=== PATIENT | female | born 1990 | race Caucasian/White ===

== ENCOUNTER 2019-10-22 14:13 | Observation (INO) | payer OTHER, SELFPAY ==
[2019-10-22] VITALS (8 sets, daily range): BP systolic 95–114; BP diastolic 63–77; PULSE 83–106; RESP 18; TEMP 36.8–36.9; O2SAT 99; BMI 25.4
--- NOTE | 2019-10-22 15:01 | OBADM ---
This patient, Amber Santo, admitted to the OB room OB Post 115 for observation. Patient/family oriented to hospital policies and general routines including ID bracelet, bed and alarms, visiting hours, pain management, procedures, bathroom and other care routines, personal items, smoking policy, room service/diet, and visiting hours. Patient/Family are encouraged to report perceived risks to care and to ask questions if they do not understand what they are told or what they should do.
[2019-10-22 15:06] LABS: Add Urine Microscopic? YES; Appearance Urine Turbid (Clear); Bacteria Urine 3+ /hpf; Bilirubin Urine Negative (Negative); Blood Urine 1+ (Negative); Color Urine Yellow (Yellow); Glucose Urine UA Negative (Negative); Ketones Urine Negative (Negative); Leukocyte Esterase Ur 3+ LEU/UL (Negative); Mucus Urine Few /lpf; Nitrate Urine Positive (Negative); Protein Urine 2+ mg/dL (Negative); RBC Urine >75 /hpf (0-2); Specific Grav Ur 1.016 (1.001-1.035); Squamous Epithelial Cell Urine Occasional /hpf (Few); Urobilinogen Urine Negative mg/dL (<2.0); WBC Urine >75 /hpf
--- NOTE | 2019-10-30 09:31 | PM.OBTRLD ---
OB - Triage/Final Diagnosis Evaluation Laboratory results: Laboratory Tests 10/22/19 14:25 Urine Color Yellow Urine Appearance Turbid H Urine pH 6.0 Ur Specific [place] 1.016 Urine Protein 2+ H Urine Glucose (UA) Negative Urine Ketones Negative Ur Blood (Man) 1+ H Urine Nitrate Positive H Urine Bilirubin Negative Urine Urobilinogen Negative Leukocyte Esterase Rfl 3+ H Urine RBC >75 H Urine WBC >75 H Ur Squamous Epith Cells Occasional Urine Bacteria 3+ H Urine Mucus Few H Final Diagnosis (1) UTI (urinary tract infection): Code(s): N39.0 - Urinary tract infection, site not specified Status: Acute
== END 2019-10-22 16:00 | disposition home or self-care (01) ==
PROVIDERS: Admitting Provider Obstetrics & Gynecology Gynecology; PCP Obstetrics & Gynecology; Visit Provider Obstetrics & Gynecology Gynecology
DX: O23.42 Unspecified infection of urinary tract in pregnancy, second trimester (principal); Z3A.22 22 weeks gestation of pregnancy
CPT/HCPCS: 81001; 87077; 87086; 87088; 87186; 99211; G0378; G0379; G0463

== ENCOUNTER 2019-12-22 14:23 | Outpatient (RCR) | payer OTHER, SELFPAY ==
[2019-12-23] MEDS: RHO(D) IMMUNE GLOBULIN 300 MCG SYRINGE IM (10:37)
== END 2020-03-21 23:59 | disposition home or self-care (01) ==
LOC: ANHLAB 14:23
PROVIDERS: PCP Obstetrics & Gynecology; Visit Provider Physician Assistant
DX: Z01.83 Encounter for blood typing (principal); Z29.13 Encounter for prophylactic Rho(D) immune globulin; O36.0990 Maternal care for other rhesus isoimmunization, unspecified trimester, not applicable or unspecified; Z3A.00 Weeks of gestation of pregnancy not specified
CPT/HCPCS: 36415; 85461; 90384; 96372; J2790

== ENCOUNTER 2020-02-08 16:08 | Observation (INO) | payer OTHER, SELFPAY ==
--- NOTE | 2020-02-08 16:08 | OBADM ---
This patient, Amber Santo, admitted to the OB room Labor/Delivery/Recovery 120 for observation. Patient/family oriented to hospital policies and general routines including ID bracelet, bed and alarms, visiting hours, pain management, procedures, bathroom and other care routines, personal items, smoking policy, room service/diet, and visiting hours. Patient/Family are encouraged to report perceived risks to care and to ask questions if they do not understand what they are told or what they should do.
--- NOTE | 2020-02-11 10:38 | PM.OBTRLD ---
OB - Triage/Final Diagnosis Visit Information Reason for evaluation: threatened labor
== END 2020-02-08 17:45 | disposition home or self-care (01) ==
PROVIDERS: Admitting Provider Obstetrics & Gynecology; Visit Provider Obstetrics & Gynecology
DX: O47.1 False labor at or after 37 completed weeks of gestation (principal); Z3A.38 38 weeks gestation of pregnancy
CPT/HCPCS: G0378; G0379

== ENCOUNTER 2020-02-11 14:28 | Outpatient (CLI) | payer OTHER, SELFPAY ==
[2020-02-11 14:53] LABS: Hematocrit 28.4 % (37.0-47.0); Hemoglobin 9.1 g/dL (12.0-15.0); Mean Corpuscular Hemoglobin 28.4 pg (26-34); Mean Corpuscular Volume 88.8 fl (80-100); Mean Platelet Volume 10.4 fl (7.4-10.4); Platelet Count Result 458 k/mm3 (150-375); Red Cell Distribution Width 15.4 % (11.5-14.5); White Blood Count 13.6 K/mm3 (4.5-10.0)
[2020-02-11 16:14] LABS: HIV 1/2 Ab P24 Ag Result Negative (Negative)
[2020-02-12 07:16] LABS: Rapid Plasma Reagin Non-Reactive (NonReactive)
== END 2020-02-11 14:29 | disposition home or self-care (01) ==
LOC: ANHLAB 14:30
PROVIDERS: PCP Obstetrics & Gynecology; Visit Provider Obstetrics & Gynecology
DX: O82 Encounter for cesarean delivery without indication (principal); Z3A.00 Weeks of gestation of pregnancy not specified
CPT/HCPCS: 36415; 85027; 86592; 86703; 86850; 86880; 86900; 86901; 86902; G0432

== ENCOUNTER 2020-02-12 11:15 | Inpatient (IN) | payer OTHER, SELFPAY ==
--- NOTE | 2020-01-28 14:52 | PC.NURSE ---
VERIFIED WITH OR SCHEDULE AND PATIENT--C/S ON 02/19/20 AT 1330 PATIENT GIVEN REQUISITION FOR PRE-OP LAB DRAW ON 02/18/20
[2020-02-12] VITALS (42 sets, daily range): BP systolic 84–118; BP diastolic 28–90; PULSE 45–133; RESP 14–18; TEMP 36.1–36.6; O2SAT 93–100; BMI 28.5
[2020-02-12] MEDS: LACTATED RINGERS 1,000 ML 125 ML IV CONT (12:06)
--- NOTE | 2020-02-12 12:10 | LDADM ---
This patient, Amber Santo, was admitted to Labor/Delivery/Recovery 118 on 02/12/20 at 11:15. Plans for labor, pain management and were discussed with patient. Patient/family oriented to hospital policies and general routines including ID bracelet, bed and alarms, visiting hours, pain management, procedures, bathroom and other care routines, personal items, smoking policy, room service/diet and guest tray routines, infant security routines, and visiting hours. Patient/Family are encouraged to report perceived risks to care and to ask questions if they do not understand what they are told or what they should do. See OBIX for further documentation.
--- NOTE | 2020-02-12 13:11 | WPDANESEPPF ---
Anes - Initial Pre Proc Eval Procedure: Operation Date: 02/12/20 13:30 Proposed Procedures p Repeat Low Transverse Section - Jax Peters MD Date/Time: 02/12/20 13:11 Surgeon: Jax Peters MD Pre Op Diagnosis: C Section Patient Data Age: 29 Gender: F Height: 5 ft 3 in Weight: 73.2 kg Last Vital Signs Pulse 126 H 02/12/20 11:49 BP 118/86 02/12/20 11:49 Allergies Allergy/AdvReac Type Severity Reaction Status Date / Time No Known Allergies Allergy Verified 01/28/20 14:30 Home Medications Medication Instructions Recorded Confirmed Type Gummy 2 tablet PO DAILY 10/22/19 10/22/19 History Patient hx anesthesia problems: none Family hx anesthesia problems: none PMFSH Family History Family History Father Diabetes mellitus Grandparent Diabetes mellitus Alzheimer disease Mother Paget disease of bone Social History Social History Smoking packs per day: 0.5 Smoking cigarettes per day: 10.0 Smoking status: Current every day smoker Tobacco type: cigarettes Second hand tobacco smoke exposure: Yes Substance use: never Gender identity (if verbalized by the patient): Female Spiritual care concerns: No Anes - Eval Final PreProcedure Day of Procedure 02/12/20 13:11 Patient weight: overweight Heart: tachycardia Lungs: clear to auscultation Airway: Mallampati scale class II Neurological: alert and oriented Last oral intake: >/= 8 hours ASA classification: II Emergent: no Anesthetic plan: proceed Anesthesia type and monitoring: regional spinal and standard monitoring Informed Consent: The patient's anesthetic plan and its attendant risks and benefits were discussed with the patient/family/POA. Questions were solicited and answers provided to the satisfaction of the patient/family/POA.
--- NOTE | 2020-02-12 13:18 | PM.IMHP ---
H&P: HPI History of Present Illness Date/Time: 02/12/20 13:18 Chief complaint: C Section Narrative: Amber Santo is a 29 yo F, , 39wks gestation with hx of UTI, anemia of , BV,chlamydia, deliveries by , MTFR and recurrent miscarriage presents for Repeat Low Transverse c section under spinal Review of Systems Review of Systems: All systems reviewed & are unremarkable except as noted in HPI and below Constitutional: Constitutional: Reports no additional constitutional complaints Eyes: Eyes: Reports no additional eye complaints ENT: Reports system reviewed and no additional complaints, except as documented Cardiovascular: Cardiovascular: Reports no additional cardiovascular complaints Respiratory: Respiratory: Reports no additional respiratory complaints Gastrointestinal: Gastrointestinal: Reports no additional gastrointestinal complaints Genitourinary: Genitourinary: Reports no additional female genitourinary complaints Musculoskeletal: Musculoskeletal: Reports no additional musculoskeletal complaints Integumentary/Breasts: Skin/Breast: Reports system reviewed and no additional complaints, except as docu Neurologic: Reports system reviewed and no additional complaints, except as documented Psychiatric: Psychiatric: Reports no additional psychiatric complaints Endocrine: Endocrine: Reports no additional endocrine complaints Hematologic/Lymphatic: Hematologic/Lymphatic: Reports no additional hematologic/lymphatic complaints Allergic/Immunologic: Allergic/Immunologic: Reports no additional allergic/immunologic complaints PMFSH Past Medical History Medical History 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 F, 4lbs 11oz, Primary Delivery by section 12-17-2008, 40 wks 1. M, 5lbs 8oz, Repeat Family History Family History Father Diabetes mellitus Grandparent Diabetes mellitus Alzheimer disease Mother Paget disease of bone Social History Social History (Updated 02/12/20 @ 13:37 by Jax Peters MD) Smoking packs per day: 0.5 Smoking cigarettes per day: 10.0 Years smoked: 10 Smoking pack-years: 5.00 Smoking status: Current every day smoker Tobacco type: cigarettes Second hand tobacco smoke exposure: Yes Alcohol intake: former Substance use: never Substance use type: does not use Living arrangements: with family Occupation/Education: unemployed Gender identity (if verbalized by the patient): Female Sexual Orientation (if Verbalized by the Patient): Straight or Heterosexual Spiritual care concerns: No Agree to blood products: Yes Meds Home Medications and Allergies Home Medications Medication Instructions Recorded Confirmed Type Gummy 2 tablet PO DAILY 10/22/19 10/22/19 History Allergies Allergy/AdvReac Type Severity Reaction Status Date / Time No Known Allergies Allergy Verified 01/28/20 14:30 Vital Signs Vital Signs - 24 hr 02/12/20 11:49 Pulse Rate 126 H Blood Pressure 118/86 Exam Const: General: no acute distress HENMT: Ears: TM's normal bilaterally General nose exam: Normal nares present Mouth: Yes moist mucous membranes Eyes: General: appearance normal, both eyes and all related structures Neck: Neck: supple and no JVD Chest: Chest palpation & inspection: normal inspection of the chest Breast/axilla inspection: normal inspection of the breasts Breast/axilla palpation: normal palpation of the breasts Resp: Auscultation: clear to auscultation bilaterally Cardio: Rate: regular rat
[2020-02-12] MEDS: LACTATED RINGERS 250 ML 999 ML IVPB (13:26)
--- NOTE | 2020-02-12 13:40 | WPDHPUPDATE1 ---
History and Physical Update Update Date/Time: 02/12/20 13:40 History and Physical has been reviewed, including an updated exam of the patient. There are NO changes in the patient's condition. Risks, benefits, and alternatives have been discussed and questions answered. Patient agrees to proceed with procedure. 29yo F with hx of UTI, anemia of , BV, chlamyida, deliveries by , MTHFR, and recurrent miscarriages presents for Repeat c section under spinal at 39 weeks
--- NOTE | 2020-02-12 13:42 | WPDOBADMIT ---
Obstetrics - Admit Note Admission Note: record reviewed. No pertinent additions to the history and/or any subsequent changes in the physical findings that are not consistent with the expected course of the were found. Additions to the history and/or subsequent changes in the physical findings follow. None. 29yo F @ 39weeks with hx of UTI, anemia of , BV, chlamyida, deliveries by , MTHFR, and recurrent miscarriages presents for Repeat Low Transverse c section
[2020-02-12] MEDS: OXYTOCIN 10 UNITS/ML VIAL IM (14:13)
--- NOTE | 2020-02-12 14:49 | PM.OBPRVD ---
OB - Delivery Note Procedure Delivery date: 02/12/20 Procedure: Procedures Operation Date: 02/12/20 13:30 Repeat Low transverse c section with delivery of viable female and placenta and myomectomy Intrapartal events: None Induction method: none Delivery monitor: external FHT and external uterine Route of delivery: (REPEAT LTCS) Specimen: Yes Estimated blood loss (mL): 435 Anesthesia type: Spinal Disposition: floor Complications: none Baby Date of : 02/12/20 Time of : 14:12 Weeks of gestation at delivery: 39 Infant gender: Female Weight (pounds): 6 Weight (ounces): 2 presentation: vertex position: Left Occiput Transverse Placenta delivery description: Manual Removal and Normal Configuration cord vessel description: 3 Vessels score one minute: 8 score five minutes: 9
--- NOTE | 2020-02-12 14:52 | PM.OBDSVD ---
DS: Admitting Diagnosis Admitting Diagnosis Admitting Diagnosis: C Section term DS: Discharge Diagnosis Discharge Diagnosis (1) Term delivered: Code(s): O80 - Encounter for full-term uncomplicated delivery Status: Acute (2) Delivery by section: Status: Acute (3) Recurrent loss: Code(s): N96 - Recurrent loss Status: Acute (4) Constipation during : Code(s): O99.619 - Diseases of the digestive system complicating , unspecified trimester; K59.00 - Constipation, unspecified Status: Acute (5) STD (sexually transmitted disease): Code(s): A64 - Unspecified sexually transmitted disease Status: Acute (6) UTI (urinary tract infection): Code(s): N39.0 - Urinary tract infection, site not specified Status: Acute (7) History of chlamydia infection: Code(s): Z86.19 - Personal history of other infectious and parasitic diseases Status: Acute (8) Rh negative status during : Code(s): O26.899 - Other specified related conditions, unspecified trimester; Z67.91 - Unspecified blood type, Rh negative Status: Acute (9) Delivery by section: Status: Acute (10) Heterozygous MTHFR mutation [id number]: Code(s): E72.12 - Methylenetetrahydrofolate reductase deficiency Status: Acute OB - DS: Summary Hospital Course Time spent discussing smoking cessation with patient: 3 to 10 minutes OB Procedures : Ultrasound OB Procedures Intrapartum: (REPEAT LTCS) OB Procedures: : RHo (D) lg Peripartum Data Infant Delivery Method: Section Procedures: Procedures Operation Date: 02/12/20 13:30 <No data on this case meets the specified criteria> complications: none 1: Gender: Female Disposition of : home Status at Discharge Functional status at discharge: independent ambulation Overall status at discharge: patient is back to baseline Time Spent with Patient Time attestation: Total time spent providing and/or coordinating discharge services: Time spent: Less than 30 minutes Exam Const: General: comfortable, no acute distress, alert and awake Orientation/consciousness: patient oriented x3 Limitations: no limitations Chest: Breast/axilla inspection: normal inspection of the breasts Breast/axilla palpation: normal palpation of the breasts Resp: Effort & Inspection: normal respiratory effort Auscultation: clear to auscultation bilaterally Cardio: Rate: regular rate GI: Inspection: normal to inspection and incision (DDI) GI Palp: Yes Soft to palpation Percussion: Yes normal to percussion Auscultation: normal bowel sounds Rectal Exam: deferred : General: Yes bladder normal to inspection and Yes no CVA tenderness Psych: Appearance: grossly normal Mental Status: mental status grossly normal Affect: normal affect Attitude: cooperative Thought content: Yes Normal thought content present Judgement: Good judgement present (Psych) DS: Data Data Completed and Pending Pending studies at discharge: Pending at discharge 02/12/20 14:31 Surgical [PTH] Routine Discharge Plan Discharge Attending physician on discharge: Jax Peters Discharging Clinician: Jax Peters Anticipated Discharge Date/Time: 02/15/20 14:56 Patient Disposition: Home, Self-Care Activity: may shower, no straining and may drive after 2 weeks Diet: as tolerated and regular Wound Care Instructions: follow printed instructions Discharge Instructions: routine Patient Instructions: Antibiotic Form Stand Alone Forms: General Discharge Information Follow-up/Referrals: Jax Peters MD [Physician] - Discharge Medications: No Action Gummy 400 mcg-35 mg -25 mg-5 mg Tablet,Chewable 2 tablet PO DAILY RF: 0 Date of admission: 02/12/20 11:15
[2020-02-12] MEDS: MORPHINE SULFATE 2 MG/ML INJ 3 MG IV PUSH (15:09)
[2020-02-12] MEDS: OXYTOCIN 30 UNITS/NS 500 ML 30 UNITS/500 ML BAG 125 UNITS IV CONT (15:25)
--- NOTE | 2020-02-12 15:55 | P.OP_ITS ---
Procedure Note - Detailed Date of procedure: 02/12/20 Pre-op diagnosis: C Section Intrauterine at term previous section desires repeat section Post-op diagnosis: same ( delivered a viable female and uterine fibroid) Procedure performed: repeat low transverse section with delivery of viable female and placenta and uterine myomectomy Description of procedure: informed consent was obtained the patient was taken to the operating room where spinal anesthetic was administered a Devine catheter was placed. The abdomen was prepped and draped in the usual sterile fashion. A time-out was performed. An elliptical incision was made around the old scar in the lower abdomen transverse and cautery was used for hemostasis to excise the old scar. The fascia was entered with electrocautery and undermined inferior and superior and the rectus muscles were in the midline. The uterus was entered with electrocautery and extended bilaterally digitally. Ruptured membranes revealed clear fluid. The vertex was then delivered via the abdominal incision with the Nose and Throat being bulb suction the cord was clamped and cut and the infant was handed to the nursery nurse in attendance scores 8 and 9 weight 6 lb 2 oz female delivered at 2:12 p.m. taken to the nursery in stable condition the placenta cord gases cord blood obtained and the placenta was then delivered intact with a three-vessel cord. The uterus contracted well with Pitocin given intravenously as well as 10 units intra myometrial. blood clots and membranes removed from the intrauterine cavity and then the uterus was repaired in 2 layers with 0 Vicryl in a running interlocking fashion the 2nd being an imbricating stitch. Irrigation was performed blood and clots removed from the cul-de-sac both lateral gutters and the uterus was returned to the peritoneal cavity. Sponge needle and instrument counts were correct the anterior peritoneum and rectus muscles reapproximated 0 Vicryl in a running fashion fascia was closed with 2. Quill SIRS system bilaterally. Fco's fascia reapproximated 3 0 plain interrupted fashion. Then the skin was closed with insert or by IMS OR be dissolvable marie as well as Dermabond to the skin followed by Aquacel dressing the patient was taken to the recovery room stable condition the sponge needle instrument count correct the patient tolerated procedure well. Anesthesia: spinal (with duramorph) Surgeon: Jax Peters MD [employer]: master fire control technician Estimated blood loss (mL): 435 IV fluids (mL): 1,000 Urine output (mL): 100 Drains: No Packing: No Pathology: yes Complications: None Condition: stable Disposition: floor
--- NOTE | 2020-02-12 18:47 | PC.NURSE ---
1715 Pt admitted to room 291 per stretcher from labor and delivery after repeat delivery of viable female at [address]. Mother is a and is choosing to breast and bottle feed infant. FOB present. Couple oriented to room, staffing and procedures. Pt's VSS and assessment WNL.
[2020-02-12] MEDS: DEXTROSE 5%/0.45% SOD CHL 1,000 ML 125 ML IV CONT (19:33)
[2020-02-13] VITALS: BP 115/66; PULSE 58; RESP 18; TEMP 36.6; O2SAT 100
[2020-02-13 04:00] VITALS: BP 104/62; PULSE 60; RESP 18; TEMP 36.8; O2SAT 99
[2020-02-13 05:27] LABS: Basophils Absolute Auto 0.1 K/mm3 (0.0-0.1); Basophils Percent Auto 0.4 % (0.2-1.2); Eosinophils Absolute Auto 0.1 K/mm3 (0-0.3); Eosinophils Percent Auto 0.6 % (0-4.4); Hematocrit 28.4 % (37.0-47.0); Hemoglobin 8.7 g/dL (12.0-15.0); Immature Granulocyte Absolute 0.14 K/mm3 (0.00-0.031); Immature Granulocyte Percent A 0.9 % (0-0.5); Lymphocytes Absolute Auto 2.09 K/mm3 (0.9-3.2); Lymphocytes Percent Auto 13.4 % (18.3-44.2); Mean Corpuscular HGB Conc 30.6 g/dl (32-36); Mean Corpuscular Hemoglobin 27.6 pg (26-34); Mean Corpuscular Volume 90.2 fl (80-100); Monocytes Absolute Auto 0.7 K/mm3 (0.1-0.6); Monocytes Percent Auto 4.6 % (2.6-8.5); Neutrophils Absolute Auto 12.4 K/mm3 (1.3-6.7); Neutrophils Percent Auto 80.1 % (45.5-73.1); Platelet Count Result 380 k/mm3 (150-375); Red Blood Count 3.15 M/mm3 (4.2-5.4); Red Cell Distribution Width 15.5 % (11.5-14.5); White Blood Count 15.5 K/mm3 (4.5-10.0)
[2020-02-13 07:25] VITALS: BP 106/45; PULSE 66; RESP 18; TEMP 36.7
[2020-02-13] MEDS: MULTIVIT/MIN/PREN/FOL AC/IRON TABLET 1 TAB PO (08:18)
[2020-02-13] MEDS: DOCUSATE SODIUM 100 MG CAPSULE PO ×2 (08:19→17:22)
[2020-02-13] MEDS: POLYSACCHARIDE IRON COMPLEX 150 MG CAPSULE PO ×2 (08:19→17:22)
[2020-02-13] MEDS: RHO(D) IMMUNE GLOBULIN 300 MCG SYRINGE IM (11:40)
[2020-02-13] MEDS: IBUPROFEN 600 MG TABLET PO ×2 (12:30→20:02)
--- NOTE | 2020-02-13 14:36 | PM.OBPNVD ---
OB - PN: Subj Subjective Date/time seen: 02/13/20 14:36 POD #1 Amber reports doing ok today. She states the pain is present, more than her previous c/s, but the pain is better with meds. 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 She is tolerating regular diet. She has ambulated to the bathroom. She is voiding. She has not passed gas yet. She is bottle feeding, but might try to breast feed. She denies fever, chills, CP, SOB, DAVIS, vision changes, N/V, dizziness or palpations. OB - PN: Obj Data Labs CBC & Chem 7: 02/13/20 04:32 Labs: Laboratory Results - last 24 hr 02/13/20 02/13/20 04:32 04:33 WBC 15.5 H RBC 3.15 L Hgb 8.7 L Hct 28.4 L MCV 90.2 MCH 27.6 MCHC 30.6 L RDW 15.5 H Plt Count 380 H MPV 11.0 H Immature Gran % (Auto) 0.9 H Neut % (Auto) 80.1 H Lymph % (Auto) 13.4 L [place] % (Auto) 4.6 Eos % (Auto) 0.6 Baso % (Auto) 0.4 Lymph # (Auto) 2.09 [place] # (Auto) 0.7 H Eos # (Auto) 0.1 Baso # (Auto) 0.1 Abs Immat Gran (auto) 0.14 H Absolute Neuts (auto) 12.4 H Absolute Nucleated RBC 0.0 Nucleated RBC % 0.0 Blood Type O Negative Antibody Screen TNP Screen Negative Baby's Blood Type O pos Baby's LISA Positive Doses of RhIg Required 1 OB - PN A/P Assessment and Plan (1) S/P section: Code(s): Z98.891 - History of uterine scar from previous surgery Status: Acute (2) Anemia: Qualifiers: Anemia type: iron deficiency Iron deficiency anemia type: other iron deficiency Qualified Code(s): D50.8 - Other iron deficiency anemias Code(s): D64.9 - Anemia, unspecified Status: Acute Plan day: 1 Plan: routine care Comments: - continue current pain regimen; pt to take regularly - ambulation encouraged - no s/sx of anemia; encouraged PO hydration, continue iron Time Spent With Patient Time: Total time spent is greater than 50% in coordination of care (as documented) at patient's floor/unit and/or counseling patient: Review of Systems Review of Systems: All systems reviewed & are unremarkable except as noted in HPI and below (HPI) Exam Const: General: comfortable, no acute distress, alert and awake Orientation/consciousness: patient oriented x3 Resp: Effort & Inspection: normal respiratory effort Auscultation: clear to auscultation bilaterally Cardio: Rate: regular rate GI: Other: decreased bowel sounds, soft, appropriately tender, pfannenstiel incision covered with dressing : Other: fundus firm below umbilicus Psych: Appearance: grossly normal Affect: normal affect Attitude: cooperative
--- NOTE | 2020-02-13 14:55 | WPDANLDPN2 ---
Anes-Prog Note L&D Date/Time: 02/13/20 14:55 Comfortable throughout: section Neuraxial method: spinal Epidural/Spinal procedure site: clean & non-tender Neuro status: Neuro function grossly intact. Cardiovascular status: normal Respiratory status: normal Airway patency: baseline Mental status: baseline Post-Op hydration status: normal Vital Signs: Last Vital Signs Temp 36.7 C 02/13/20 07:25 Pulse 66 02/13/20 07:25 Resp 18 02/13/20 07:25 BP 106/45 L 02/13/20 07:25 Pulse Ox 99 02/13/20 04:00 I/O: Intake & Output 02/12/20 02/13/20 02/13/20 23:59 07:59 15:59 Intake Total 1053 1013 Output Total 1500 1200 500 Balance -[phone] -[phone] Post-procedural complaints: none Patient feedback: Patient satisfied with anesthetic care.
--- NOTE | 2020-02-13 14:55 | WPDANLDNPN2 ---
Anes-Prog Note L&D-Neuraxial Date/Time: 02/13/20 14:55 Neuraxial medications: intrathecal PF morphine Opiod-related complaints: none Patient feedback: Patient satisfied with post-operative pain management.
[2020-02-13 18:20] VITALS: BP 136/72; PULSE 74; RESP 12; TEMP 36.8
[2020-02-14] MEDS: IBUPROFEN 600 MG TABLET PO ×4 (01:48→21:09)
[2020-02-14 08:08] VITALS: BP 122/74; PULSE 71; RESP 16; TEMP 36.6; O2SAT 100
[2020-02-14] MEDS: SIMETHICONE 80 MG TAB.CHEW PO (08:08)
[2020-02-14] MEDS: DOCUSATE SODIUM 100 MG CAPSULE PO ×2 (08:08→15:40)
[2020-02-14] MEDS: MULTIVIT/MIN/PREN/FOL AC/IRON TABLET 1 TAB PO (08:08)
[2020-02-14] MEDS: POLYSACCHARIDE IRON COMPLEX 150 MG CAPSULE PO ×2 (08:08→15:41)
--- NOTE | 2020-02-14 10:55 | WPDANLDPN2 ---
Anes-Prog Note L&D Date/Time: 02/14/20 10:55 Comfortable throughout: section Neuraxial method: spinal Epidural/Spinal procedure site: clean & non-tender Neuro status: Neuro function grossly intact. Cardiovascular status: normal Respiratory status: normal Airway patency: baseline Mental status: baseline Post-Op hydration status: normal Vital Signs: Last Vital Signs Temp 36.6 C 02/14/20 08:08 Pulse 71 02/14/20 08:08 Resp 16 02/14/20 08:08 BP 122/74 02/14/20 08:08 Pulse Ox 100 02/14/20 08:08 Post-procedural complaints: none Patient feedback: Patient satisfied with anesthetic care.
--- NOTE | 2020-02-14 10:55 | WPDANLDNPN2 ---
Anes-Prog Note L&D-Neuraxial Date/Time: 02/14/20 10:55 Neuraxial medications: intrathecal PF morphine Opiod-related complaints: none Patient feedback: Patient satisfied with post-operative pain management.
--- NOTE | 2020-02-14 12:16 | P.PNOB_ITS ---
OB - PN: Subj Subjective Date/time seen: 02/14/20 12:16 POD#2 Amber reports doing better today. She states her pain is better controlled. She is tolerating regular diet. She is ambulating w/o s/sx of anemia. She is voiding. She has not passed gas, but she does report that she feels/hears it moving. She is bottle feeding/pumping. She denies CP, SOB, DAVIS, vision changes, fever, chills, N/V, dizziness or palpitations. OB - PN: Obj Data Labs CBC & Chem 7: 02/13/20 04:32 OB - PN A/P Assessment and Plan (1) S/P section: Code(s): Z98.891 - History of uterine scar from previous surgery Status: Acute (2) Anemia: Qualifiers: Anemia type: iron deficiency Iron deficiency anemia type: other iron deficiency Qualified Code(s): D50.8 - Other iron deficiency anemias Code(s): D64.9 - Anemia, unspecified Status: Acute Plan day: 2 Plan: routine care Comments: - Awaiting passage of flatus; pt encouraged to ambulate/chew gum. Pt getting colace and simethicone; ok to have suppository as she has normal bowel sounds. - Plan for discharge home tomorrow - Medications sent to pharmacy; take as prescribed - Pelvic rest, no heavy lifting - Return precautions discussed: abd pain/n/v, fever, bleeding, HTN Time Spent With Patient Time: Total time spent is greater than 50% in coordination of care (as documented) at patient's floor/unit and/or counseling patient: Review of Systems Review of Systems: All systems reviewed & are unremarkable except as noted in HPI and below (HPI) Exam Const: General: comfortable, no acute distress, alert and awake Orientation/consciousness: patient oriented x3 Resp: Effort & Inspection: normal respiratory effort Auscultation: clear to auscultation bilaterally Cardio: Rate: regular rate GI: Auscultation: normal bowel sounds Other: non-distended, soft, tin ropriately tender, pfannenstiel incision covered with dressing : Other: fundus firm below umbilicus Psych: Appearance: grossly normal Affect: normal affect Attitude: cooperative
[2020-02-14 19:09] VITALS: BP 110/62; PULSE 74; RESP 16; TEMP 36.1; O2SAT 99
[2020-02-15] MEDS: IBUPROFEN 600 MG TABLET PO ×2 (02:49→11:14)
[2020-02-15 07:45] VITALS: BP 126/81; PULSE 72; RESP 18; TEMP 36.4; O2SAT 99
[2020-02-15] MEDS: POLYSACCHARIDE IRON COMPLEX 150 MG CAPSULE PO (07:56)
[2020-02-15] MEDS: DOCUSATE SODIUM 100 MG CAPSULE PO (07:56)
--- NOTE | 2020-02-15 09:43 | PM.OBPNVD ---
OB - PN: Subj Subjective Date/time seen: 02/15/20 09:43 Patient comments: no complaints, pain well controlled, tolerating diet and flatus present [place] baby status: doing well [place] feeding status: breast and bottle feeding OB - PN: Obj Data Labs CBC & Chem 7: 02/13/20 04:32 OB - PN A/P Assessment and Plan (1) Term delivered: Code(s): O80 - Encounter for full-term uncomplicated delivery Status: Acute (2) Delivery by section: Status: Acute Time Spent With Patient Time: Total time spent is greater than 50% in coordination of care (as documented) at patient's floor/unit and/or counseling patient:15 Review of Systems Review of Systems: All systems reviewed & are unremarkable except as noted in HPI and below Exam Const: General: comfortable, no acute distress, alert and awake Orientation/consciousness: patient oriented x3 Chest: Breast/axilla inspection: normal inspection of the breasts Breast/axilla palpation: normal palpation of the breasts Resp: Effort & Inspection: normal respiratory effort Cardio: Rate: regular rate GI: Auscultation: normal bowel sounds : General: Yes no CVA tenderness Psych: Appearance: grossly normal Mental Status: mental status grossly normal Affect: normal affect Attitude: cooperative Judgement: Good judgement present (Psych)
== END 2020-02-15 11:40 | disposition home or self-care (01) | DRG 540 ==
LOC: ANHLDR 14:58 → ANHOB2 17:45
PROVIDERS: Admitting Provider Obstetrics & Gynecology; Visit Provider Obstetrics & Gynecology
PROC: 10D00Z1 Extraction of Products of Conception, Low, Open Approach (ICD-10-PCS; CPT 59514; principal; 2020-02-12 13:30)
DX: O34.211 Maternal care for low transverse scar from previous cesarean delivery (principal); Z37.0 Single live birth; Z3A.39 39 weeks gestation of pregnancy; O99.334 Smoking (tobacco) complicating childbirth; F17.210 Nicotine dependence, cigarettes, uncomplicated; O99.02 Anemia complicating childbirth; D50.8 Other iron deficiency anemias; O36.0930 Maternal care for other rhesus isoimmunization, third trimester, not applicable or unspecified; N96 Recurrent pregnancy loss; O99.284 Endocrine, nutritional and metabolic diseases complicating childbirth; E72.12 Methylenetetrahydrofolate reductase deficiency; N39.0 Urinary tract infection, site not specified; O99.613 Diseases of the digestive system complicating pregnancy, third trimester; K59.00 Constipation, unspecified; Z86.19 Personal history of other infectious and parasitic diseases; O34.13 Maternal care for benign tumor of corpus uteri, third trimester; D25.9 Leiomyoma of uterus, unspecified
CPT/HCPCS: 36415; 85025; 85461; 88305; 88307; 90384; A9270; J0131; J2250; J2270; J2274; J2405; J2590; J2704; J2790; J7120

== ENCOUNTER 2020-11-27 22:57 | Emergency (ER) | payer OTHER, SELFPAY ==
[2020-11-27 22:59] VITALS: BP 131/92; PULSE 96; RESP 17; TEMP 36.9; O2SAT 100
--- NOTE | 2020-11-28 01:53 | ED.WOUNDLAC ---
HPI - Wound/Laceration General Chief Complaint: Wound/Laceration Stated Complaint: leg infection Time Seen by Provider: 11/28/20 00:24 History of Present Illness HPI narrative: Patient is a 30-year-old female who presents ER with infection to her leg. Began on 11/24 after she excellently struck her leg on a toothpick while sitting down. She is developed increased pain and redness over the last few days. No fevers or chills or sweats. She was using. To try to bring in the infection to the head which did not work. Pain is worse with palpation. Her tetanus shot is up-to-date. 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 F, 4lbs 11oz, Primary Delivery by section 12-17-2008, 40 wks 1. M, 5lbs 8oz, Repeat Family History Family History Father Diabetes mellitus Grandparent Diabetes mellitus Alzheimer disease Mother Paget disease of bone Social History Social History (Updated 02/12/20 @ 13:37 by Jax Peters MD) Smoking packs per day: 0.5 Smoking cigarettes per day: 10.0 Years smoked: 10 Smoking pack-years: 5.00 Smoking status: Current every day smoker Tobacco type: cigarettes Second hand tobacco smoke exposure: Yes Alcohol intake: former Substance use: never Substance use type: does not use Gender identity (if verbalized by the patient): Female Spiritual care concerns: No Agree to blood products: Yes Exam Narrative: Exam Narrative: GENERAL: Well-appearing, well-nourished, and in no acute distress. HEAD: Normocephalic, atraumatic. EXTREMITIES: Normal range of motion. No edema. SKIN: Warm, dry, no rash. Abscess posterior right thigh with surrounding cellulitis. NEURO: Alert and oriented x3. PSYCH: Normal mood and affect. Course Vital Signs Vital signs: Vital Signs Temperature 98.4 F 11/27/20 22:59 Pulse Rate 96 11/27/20 22:59 Respiratory Rate 17 11/27/20 22:59 Blood Pressure 131/92 H 11/27/20 22:59 Pulse Oximetry 100 11/27/20 22:59 Temperature 98.4 F 11/27/20 22:59 Pulse Rate 96 11/27/20 22:59 Respiratory Rate 17 11/27/20 22:59 Blood Pressure 131/92 H 11/27/20 22:59 Pulse Oximetry 100 11/27/20 22:59 Procedures Abscess I/D lower extremity: Date of Incision: 11/28/20 Time of Incision: 01:38 Side (if applicable): right Local Anesthetic: lidocaine 1% and with epi Amount of anesthesia used (mL): 6 Technique: incised with #11 blade Irrigation: No Packing used?: iodoform I&D Results: Pus Discharge Plan Discharge Clinical Impression: Abscess Patient Disposition: Home, Self-Care Condition: Stable Instructions: Antibiotic Form, Abscess (ED) Additional Instructions: Return the ER if you have worsening pain in your leg, you have fever over 100.4 ?F, you have additional concerns. Take the full course of antibiotics. Remove your packing in 2 days. Prescriptions: New sulfamethoxazole-trimethoprim [Bactrim DS] 800-160 mg tablet 1 tablet PO Q12H Qty: 20 RF: 0 Follow-up/Referrals: PHYSICIAN,CUSTOM BOOKBINDER [Primary Care Provider] Vlad Klein
[2020-11-28 02:06] VITALS: BP 121/79; PULSE 90; RESP 18; O2SAT 100
== END 2020-11-28 02:07 | disposition home or self-care (01) ==
PROVIDERS: Emergency Provider Emergency Medicine
DX: L02.415 Cutaneous abscess of right lower limb (principal); E72.12 Methylenetetrahydrofolate reductase deficiency; Z87.440 Personal history of urinary (tract) infections; F17.210 Nicotine dependence, cigarettes, uncomplicated
CPT/HCPCS: 10061; 99283; A9270

== ENCOUNTER 2023-06-21 16:08 | Emergency (ER) | payer OTHER, SELFPAY ==
[2023-06-21 16:42] VITALS: BP 132/79; PULSE 89; RESP 18; TEMP 36.8; O2SAT 100
--- NOTE | 2023-06-21 17:00 | PC.NURSE ---
Pt declined to be seen, states she changes her mind and does not want to be seen, this RN encouraged pt to stay for eval, pt declined and ambulated out in NAD.
== END 2023-06-21 17:25 | disposition left against medical advice (07) ==
LOC: ANHED 17:09
DX: K08.89 Other specified disorders of teeth and supporting structures (principal)
CPT/HCPCS: 99199